=== PATIENT | female | born 1955 | race Caucasian/White ===

== ENCOUNTER 2021-03-12 15:29 | Emergency (ER) | payer OTHER ==
--- NOTE | 2021-03-12 16:15 | ED Physician Documentation ---
PD HPI WOUND RECHECK - Stated complaint Stated Complaint: POST OP ISSUES AT INCISION - Chief complaint Chief Complaint: Wound - Histroy obtained from History obtained from: Patient - Additional information Additional information: Patient is a 65-year-old female who presents to the emergency department stating that she had surgery to her right axilla with skin grafts and a wound VAC. She states that she is concerned it may be starting to get infected again. She contacted her wound care nurse in [place] who recommended she come here for antibiotics. No fevers. No chills. No vomiting. Nothing makes it better or worse. Review of Systems Constitutional: denies: Fever, Chills Skin: denies: Rash Musculoskeletal: denies: Neck pain, Back pain Neurologic: denies: Headache PD PAST MEDICAL HISTORY - Past Medical History Past Medical History: Yes Cardiovascular: Hypertension, High cholesterol Respiratory: Sleep apnea, CPAP use Neuro: None, Peripheral neuropathy Endocrine/Autoimmune: Type 2 diabetes GI: None [employer]: Ovarian cysts : None HEENT: None Psych: None Musculoskeletal: Chronic back pain Derm: Psoriasis - Past Surgical History Past Surgical History: Yes /[employer]: Tubal ligation Derm: Debridement - Present Medications Home Medications: Ambulatory Orders Medication Instructions Recorded Confirmed Atorvastatin Calcium 0 mg ORAL HS 03/12/21 03/12/21 Cyclobenzaprine [Flexeril] 10 mg PO TID PRN 03/12/21 03/12/21 Enalapril [Vasotec] 0 mg ORAL DAILY 03/12/21 03/12/21 Gabapentin [Neurontin] 300 mg PO TID 03/12/21 03/12/21 HYDROcod/ACETAM 5/325 [Fields 5/325] 1 tab PO TID 03/12/21 03/12/21 Insulin Glargine,Hum.rec.anlog 35 unit SUBQ HS 03/12/21 03/12/21 [Basaglar Kwikpen U-100] Liraglutide [Victoza 2-Kraig] 1.8 mg SQ DAILY 03/12/21 03/12/21 Pioglitazone HCl [Actos] 45 mg PO DAILY 03/12/21 03/12/21 clindamycin HCL [Cleocin HCl] 300 mg PO Q6H #40 cap 03/12/21 - Allergies Allergies/Adverse Reactions: Allergies Allergy/AdvReac Type Severity Reaction Status Date / Time trazodone AdvReac Anaphylaxis Verified 03/12/21 15:43 - Social History Does the pt smoke?: Yes Smoking Status: Current every day smoker Does the pt drink ETOH?: No Does the pt have substance abuse?: Yes Substance Use and Type: Marijuana - Immunizations Immunizations are current?: Yes PD ED PE NORMAL - Vitals Vital signs reviewed: Yes - General General: Alert and oriented X 3, No acute distress - HEENT HEENT: Moist mucous membranes - Neck Neck: Supple, no meningeal sign - Derm Derm: Warm and dry - Extremities Extremities: Other (Healing Skin graft to the right axilla. Minimal erythema. No drainage.) - Neuro Neuro: Alert and oriented X 3 Results - Vitals Vitals: Vital Signs - 24 hr 03/12/21 03/12/21 15:38 16:30 Temperature 36.5 C 36.6 C Heart Rate 91 84 Respiratory 16 16 Rate Blood Pressure 146/65 H 105/56 L O2 Saturation 97 99 Oxygen O2 Source Room air PD MEDICAL DECISION MAKING - ED course Complexity details: considered differential, d/w patient ED course: Patient with possible early cellulitis of a skin graft in the right axilla. We will place her on antibiotics and have her follow-up closely with her doctor for further care. Patient has no evidence of sepsis. No abscess Patient counseled regarding signs and symptoms for which I believe and urgent re-evaluation would be necessary. Patient with good understanding of and agreement to plan and is comfortable going home at this time This document was made in part using voice recognition software. While efforts are made to proofread this document, sound alike and grammatical errors may occur. Departure - Departure Disposition: 01 Home, Self Care Clinical Impression: Cellulitis Qualifiers: Site of cellulitis: extremity Site of cellulitis of extremity: axilla Laterality: right Qualified Code(s): L03.111 - Cellulitis of right axilla Condition: Good Instructions: ED Infec Skin Cellulitis Follow-Up: your,doctor in 1 week for wound check [Other] Prescriptions: clindamycin HCL [Cleocin HCl] 300 mg PO Q6H #40 cap Comments: Take all antibiotics until gone. Return if you worsen. Discharge Date/Time: 03/12/21 16:31
[2021-03-12 16:31] VITALS: BP 105/56
== END 2021-03-12 16:31 | disposition home or self-care (01) ==
LOC: ED 15:29
DX: L03.111 Cellulitis of right axilla (principal); F17.200 Nicotine dependence, unspecified, uncomplicated
CPT/HCPCS: 99282; 99283

== ENCOUNTER 2022-11-04 08:46 | Outpatient (CLI) | payer MEDICARE, MEDICAID ==
--- NOTE | 2022-11-04 12:45 | XRAY Report ---
PROCEDURE: Foot 3 View RT INDICATIONS: RIGHT FOOT PAIN. Fourth/fifth toe base pain. TECHNIQUE: 3 views of the foot were acquired. COMPARISON: None FINDINGS: Bones: Cortical irregularity at the mid aspect of the fifth digit proximal phalanx could indicate an acute minimally displaced fracture. Otherwise no potential acute fracture identified. No suspicious bony lesions. Soft tissues: No tibiotalar joint effusion. IMPRESSION: Cortical irregularity at the mid aspect of the fifth digit proximal phalanx could indicate an acute m inimally displaced fracture. Otherwise no potential acute fracture identified. If symptoms persist, follow-up radiographs and/or CT or MRI may be helpful for further evaluation. Reviewed by: Lev Aguilar MD on 11/04/2022 12:44 PM PST Approved by: Lev Aguilar MD on 11/04/2022 12:44 PM PST Station ID: [id number]
== END 2022-11-04 08:47 | disposition home or self-care (01) ==
LOC: LAB.S 08:46 → DI.S 08:47 → LAB.S 08:47
PROVIDERS: ATTEND Physician Assistant
DX: M79.671 Pain in right foot (principal); M79.674 Pain in right toe(s)